=== PATIENT | female | born 1975 | race African-American/Black ===

== ENCOUNTER 2019-03-20 12:43 | Emergency (ER) | payer SELFPAY ==
[~2019-03-20] VITALS: Ht 170.2 cm; Wt 95.3 kg
[2019-03-20 12:59] VITALS: BP 138/70
--- NOTE | 2019-03-20 12:59 | NUR ---
ED Nurse Note: PT BROUGHT IN BY AMBULANCE FROM [facility] DUE TO DIZZINESS SINCE TODAY. EMS ALSO REPORTS PT HAS SMALL AMOUNT OF BRIGHT RED BLEEIDING FROM HER RECTUM. LMP 02/26/2019. AAOX 4, FOLLOWS COMMANDS. NOTED PT TO BE SLOW IN RESPONDING TO QUESTIONS ASKED TO HER
--- NOTE | 2019-03-20 13:38 | Emergency Room Report ---
History of Present Illness General Chief Complaint: Dizziness Source: Patient (EleniHubert DRUMMOND) Present Illness HPI Patient presents with initially complaints of feeling dizzy and low back pain Upon initial evaluation patient appears somewhat confused Patient smiles at me is not answering questions Patient also stated " I love you" After nursing presents the bedside patient reports that she has been having abdominal discomfort she felt dizzy yesterday Otherwise continues to have some limited production of her history of present illness (Hubert Knowles DO) Allergies: Coded Allergies: No Known Allergies (Unverified , 03/20/19) Patient History Limited by: medical condition Past Medical History: see triage record Last Menstrual Period: N/A Reviewed Nursing Documentation: PMH: Agreed; PSxH: Agreed (Hubert Knowles DO) Nursing Documentation-PMH History Of Psychiatric Problem: Yes - Cyclobenzaprine, Prozac (Hubert Knowles DO) Review of Systems All Other Systems: limited - Other than the ones mentioned in the history of present illness all others are reviewed however they do stay limited due to the patient's mental status (Hubert Knowles DO) Physical Exam Vital Signs Date Time Temp Pulse Resp B/P (MAP) Pulse Ox O2 Delivery O2 Flow Rate FiO2 03/20/19 12:49 98.1 82 22 138/70 (92) 96 Room Air Sp02 EP Interpretation: reviewed, normal General Appearance: no apparent distress Head: normocephalic, atraumatic Eyes: bilateral eye PERRL, bilateral eye EOMI ENT: normal pharynx Neck: full range of motion, supple Respiratory: lungs clear, no respiratory distress, no retraction Cardiovascular #1: regular rate, rhythm Gastrointestinal: non tender, soft Musculoskeletal: other - Patient has equal press setup operator bilaterally moves both lower extremities without focal deficit Neurologic: responsive, other - Patient seems somewhat confused, is giggling at bedside, difficulty focusing on questioning Skin: no rash Lymphatic: no adenopathy (Hubert Knowles DO) Medical Decision Making Diagnostic Impression: Primary Impression: Dizziness ER Course Patient's presentation is somewhat nonspecific upon initial arrival patient appears to have been at a Local food tasting when she presented to a associate principal langston At that facility complained of dizziness and low back pain Upon arrival here is not able to provide specific description of her complaint Multiple differentials including but not limited to neurological, neurosurgical , infectious, metabolic disorders are entertained Patient requiring further extensive blood work and imaging (Hubert Knowles DO) ER Course Hospital Course 43 yo F presents to ED for dizziness, back pain Initially seen and evaluated by Dr Knowles; please see his note for full history and physical Clinical course Labs - no leukocytosis, electrolytes ok, LFTs normal, UA unremarkable CT scan shows no acute pathology Reassessment patient states she feels better. Initially appeared somewhat disoriented but per nursing patient appears more oriented at this time. Discussed findings with patient. Will discharge to home. States she has a PMD I feel this is a highly complex case requiring extensive working including EKG/ Rhythm strip, Xray/CT/US, Blood/urine lab work, repeat exams while in ED, and administration of strong opiates/narcotics for pain control, admission to hospital or close patient follow up. Diagnosis - dizziness Stable and discharged to home. Followup with PMD. Return to ED if symptoms recur or worsen Labs Test 03/20/19 13:30 03/20/19 14:10 White Blood Count 6.6 K/UL (4.8-10.8) Red Blood Count 3.92 M/UL (4.20-5.40) Hemoglobin 10.5 G/DL (12.0-16.0) Hematocrit 33.0 % (37.0-47.0) Mean Corpuscular Volume 84 FL (80-99) Mean Corpuscular Hemoglobin 26.7 PG (27.0-31.0) Mean Corpuscular Hemoglobin Concent 31.8 G/DL (32.0-36.0) Red Cell Distribution Width 12.7 % (11.6-14.8) Platelet Count 296 K/UL (150-450) Mean Platelet Volume 6.7 FL (6.5-10.1) Neutrophils (%) (Auto) 61.7 % (45.0-75.0) Lymphocytes (%) (Auto) 27.2 % (20.0-45.0) Monocytes (%) (Auto) 7.5 % (1.0-10.0) Eosinophils (%) (Auto) 2.5 % (0.0-3.0) Basophils (%) (Auto) 1.1 % (0.0-2.0) Sodium Level 141 MMOL/L (136-145) Potassium Level 3.5 MMOL/L (3.5-5.1) Chloride Level 105 MMOL/L (98-107) Carbon Dioxide Level 26 MMOL/L (21-32) Anion Gap 10 mmol/L (5-15) Blood Urea Nitrogen 14 mg/dL (7-18) Creatinine 0.7 MG/DL (0.55-1.30) Estimat Glomerular Filtration Rate > 60 mL/min (>60) Glucose Level 87 MG/DL (74-106) Calcium Level 8.7 MG/DL (8.5-10.1) Total Bilirubin 0.6 MG/DL (0.2-1.0) Aspartate Amino Transf (AST/SGOT) 25 U/L (15-37) Alanine Aminotransferase (ALT/SGPT) 38 U/L (12-78) Alkaline Phosphatase 97 U/L (46-116) Total Protein 6.9 G/DL (6.4-8.2) Albumin 3.2 G/DL (3.4-5.0) Globulin 3.7 g/dL Albumin/Globulin Ratio 0.9 (1.0-2.7) Serum Alcohol < 3 mg/dL Urine Color Yellow Urine Appearance Clear Urine pH 6 (4.5-8.0) Urine Specific [place] 1.015 (1.005-1.035) Urine Protein 1+ (NEGATIVE) Urine Glucose (UA) Negative (NEGATIVE) Urine Ketones 3+ (NEGATIVE) Urine Blood Negative (NEGATIVE) Urine Nitrite Negative (NEGATIVE) Urine Bilirubin Negative (NEGATIVE) Urine Urobilinogen 1 MG/DL (0.0-1.0) Urine Leukocyte Esterase 2+ (NEGATIVE) Urine RBC 0-2 /HPF (0 - 2) Urine WBC 2-4 /HPF (0 - 2) Urine Squamous Epithelial Cells Few /LPF (NONE/OCC) Urine Bacteria Few /HPF (NONE) Urine Mucus Moderate /LPF (NONE/OCC) Urine HCG, Qualitative Negative (NEGATIVE) Urine Opiates Screen Negative (NEGATIVE) Urine Barbiturates Screen Negative (NEGATIVE) Phencyclidine (PCP) Screen Negative (NEGATIVE) Urine Amphetamines Screen Negative (NEGATIVE) Urine Benzodiazepines Screen Negative (NEGATIVE) Urine Cocaine Screen Negative (NEGATIVE) Urine Marijuana (THC) Screen Negative (NEGATIVE) (Kike Lei MD) CT/MRI/US Diagnostic Results CT/MRI/US Diagnostic Results : Imaging Test Ordered: CT A/P Impression COMPARISON: No relevant prior studies available. FINDINGS: Lung bases: Unremarkable. No mass. No consolidation. Mediastinum: Small hiatal hernia. ABDOMEN: Liver: Small calcifications right tip of the liver. Gallbladder and bile ducts: Cholecystectomy. No ductal dilation. Pancreas: Unremarkable. No ductal dilation. Spleen: Unremarkable. No splenomegaly. Adrenals: Unremarkable. No mass. Kidneys and ureters: Unremarkable. No obstructing stones. No hydronephrosis. Stomach and bowel: Unremarkable. No obstruction. No mucosal thickening. PELVIS: Appendix: Normal appendix. Bladder: Mild thickening and stranding of the urinary bladder, correlate for cystitis. No stones. Reproductive: Uterus and adnexa unremarkable. ABDOMEN and PELVIS: Intraperitoneal space: Unremarkable. No free air. No significant fluid collection. Bones joints: L5-S1 degenerative disc disease. No acute fracture. No dislocation. Soft tissues: Small fat-containing umbilical hernia. Vasculature: Unremarkable. No abdominal aortic aneurysm. Lymph nodes: Unremarkable. No enlarged lymph nodes. (Kike Lei MD) Last Vital Signs Date Time Temp Pulse Resp B/P (MAP) Pulse Ox O2 Delivery O2 Flow Rate FiO2 03/20/19 12:49 98.1 82 22 138/70 (92) 96 Room Air (Hubert Knowles DO) Status: improved (Kike Lei MD) Disposition: HOME, SELF-CARE Condition: Stable Hubert Knowles DO Mar 20, 2019 13:38 Kike Lei MD Mar 20, 2019 16:12
--- NOTE | 2019-03-20 13:50 | NUR ---
ED Nurse Note: COLLECTED BLOOD THEN SENT.
[2019-03-20 14:02] LABS: BASOPHILS % (AUTO) 1.1 % (0.0-2.0); EOSINOPHILS % (AUTO) 2.5 % (0.0-3.0); HEMOGLOBIN 10.5 G/DL (12.0-16.0); LYMPHOCYTES % (AUTO) 27.2 % (20.0-45.0); MEAN CORPUSCULAR VOLUME 84 FL (80-99); MONOCYTES % (AUTO) 7.5 % (1.0-10.0); NEUTROPHILS % (AUTO) 61.7 % (45.0-75.0); PLATELET COUNT 296 K/UL (150-450); RED BLOOD COUNT 3.92 M/UL (4.20-5.40); RED CELL DISTRIBUTION WIDTH 12.7 % (11.6-14.8); WHITE BLOOD COUNT 6.6 K/UL (4.8-10.8)
[2019-03-20 14:12] LABS: ANION GAP 10 mmol/L (5-15); BLOOD UREA NITROGEN 14 mg/dL (7-18); CALCIUM 8.7 MG/DL (8.5-10.1); CARBON DIOXIDE 26 MMOL/L (21-32); CHLORIDE 105 MMOL/L (98-107); CREATININE 0.7 MG/DL (0.55-1.30); POTASSIUM 3.5 MMOL/L (3.5-5.1); SODIUM 141 MMOL/L (136-145)
--- NOTE | 2019-03-20 14:13 | NUR ---
ED Nurse Note: COLLECTED URINE THEN SENT.
[2019-03-20 14:17] LABS: ALANINE AMINOTRANSFERASE 38 U/L (12-78); ALBUMIN 3.2 G/DL (3.4-5.0); ALBUMIN/GLOBULIN RATIO 0.9 (1.0-2.7); ALKALINE PHOSPHATASE 97 U/L (46-116); ASPARTATE AMINO TRANSFERASE 25 U/L (15-37); BILIRUBIN,TOTAL 0.6 MG/DL (0.2-1.0)
[2019-03-20 14:18] LABS: APPEARANCE,URINE CLEAR; BILIRUBIN, URINE NEGATIVE (NEGATIVE); GLUCOSE, URINE (UA) NEGATIVE (NEGATIVE); KETONES,URINE 3+ (NEGATIVE); LEUKOCYTE ESTERASE ,URINE 2+ (NEGATIVE); NITRITE,URINE NEGATIVE (NEGATIVE); PH,URINE 6 (4.5-8.0); PROTEIN,URINE 1+ (NEGATIVE); UROBILINOGEN,URINE 1 MG/DL (0.0-1.0)
[2019-03-20 14:21] LABS: COLOR,URINE YELLOW
--- NOTE | 2019-03-20 15:42 | Diagnostic Imaging Report ---
EXAM: CT Abdomen and Pelvis Without Intravenous Contrast CLINICAL HISTORY: PAIN TECHNIQUE: Axial computed tomography images of the abdomen and pelvis without intravenous contrast. CTDI is 23.6 mGy and DLP is 1395.8 mGy-cm. One or more of the following dose reduction techniques were used: automated exposure control, adjustment of the mA and or kV according to patient size, use of iterative reconstruction technique. COMPARISON: No relevant prior studies available. FINDINGS: Lung bases: Unremarkable. No mass. No consolidation. Mediastinum: Small hiatal hernia. ABDOMEN: Liver: Small calcifications right tip of the liver. Gallbladder and bile ducts: Cholecystectomy. No ductal dilation. Pancreas: Unremarkable. No ductal dilation. Spleen: Unremarkable. No splenomegaly. Adrenals: Unremarkable. No mass. Kidneys and ureters: Unremarkable. No obstructing stones. No hydronephrosis. Stomach and bowel: Unremarkable. No obstruction. No mucosal thickening. PELVIS: Appendix: Normal appendix. Bladder: Mild thickening and stranding of the urinary bladder, correlate for cystitis. No stones. Reproductive: Uterus and adnexa unremarkable. ABDOMEN and PELVIS: Intraperitoneal space: Unremarkable. No free air. No significant fluid collection. Bones joints: L5-S1 degenerative disc disease. No acute fracture. No dislocation. Soft tissues: Small fat-containing umbilical hernia. Vasculature: Unremarkable. No abdominal aortic aneurysm. Lymph nodes: Unremarkable. No enlarged lymph nodes. IMPRESSION: 1. Mild thickening and stranding of the urinary bladder, correlate for cystitis. No obstructive uropathy. No renal stones. 2. Cholecystectomy. 3. Normal appendix.
[2019-03-20 16:35] VITALS: BP 129/84
--- NOTE | 2019-03-20 16:35 | NUR ---
ER DISCHARGE NOTE: Patient is cleared to be discharged per ERMD, pt is aox4, on room air, with stable vital signs. pt was given dc instructions, pt was able to verbalize understanding, pt id band and iv site removed without complications. pt is able to ambulate with steady gait. pt took all belongings.
== END 2019-03-20 16:35 | disposition home or self-care (01) ==
LOC: EDBD 12:43 → EMR 14:47
DX: R42 Dizziness and giddiness (principal); M51.37 Other intervertebral disc degeneration, lumbosacral region; R10.9 Unspecified abdominal pain; K44.9 Diaphragmatic hernia without obstruction or gangrene; Z90.49 Acquired absence of other specified parts of digestive tract; Z86.59 Personal history of other mental and behavioral disorders
CPT/HCPCS: 36415; 74176; 80053; 80307; 81003; 81025; 85025; 99284; G0480

== ENCOUNTER 2019-07-30 00:53 | Emergency (ER) | payer SELFPAY ==
[~2019-07-30] VITALS: Ht 167.6 cm; Wt 99.8 kg
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
--- NOTE | 2019-07-30 01:10 | NUR ---
ED Nurse Note: pt denies SI/HI, states that she was given 10 mg of zyprexa that she took earlier
[2019-07-30 01:13] VITALS: BP 130/91
[2019-07-30 01:25] VITALS: BP 130/91
--- NOTE | 2019-07-30 01:25 | NUR ---
ED Nurse Note: Pt cleared by health care Provider for discharge. DC instructions were given and explained to pt and verbalized understanding of teachings. All medical devices such as ID band removed. Pt is AAO x4, ambulatory and left with all personal belongings.
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
== END 2019-07-30 01:25 | disposition home or self-care (01) ==
LOC: EDBD 00:53 → EMR 01:20
DX: F29 Unspecified psychosis not due to a substance or known physiological condition (principal)
CPT/HCPCS: 99283